=== PATIENT | female | born 1950 | race Caucasian/White ===

== ENCOUNTER 2019-10-27 17:44 | Inpatient (IN) | payer OTHER ==
[~2019-10-27] VITALS: Ht 152.4 cm; Wt 95.3 kg
--- NOTE | 2019-10-27 17:46 | NUR ---
ACS POLICY IN PLACE
[2019-10-27 17:54] VITALS: BP 159/80
[2019-10-27 18:08] LABS: BASO # 0.1 10*3/uL (0.0-0.1); BASO % 0.3 % (0.0-1.0); EOS % 0.1 % (1.0-4.0); HEMATOCRIT 30.7 % (37.0-47.0); LYMPH # 1.1 10*3/uL (1.3-4.4); MEAN CELL VOLUME 77.3 fl (81.0-99.0); MEAN CORPUSCULAR HGB 21.9 pg (27.0-31.0); MEAN CORPUSCULAR HGB CONC 28.3 g/dl (33.0-37.0); MEAN PLATELET VOLUME 10.2 fl (9.6-12.3); MONO # 1.1 10*3/uL (0.1-1.0); MONO % 4.9 % (3.0-9.0); NEUT # 19.2 10*3/uL (2.3-7.9); NEUT % 89.1 % (47.0-73.0); PLATELET COUNT AUTOMATED 401 10*3/uL (130-400); RED BLOOD COUNT 3.97 10*6/uL (4.10-5.10); RED CELL DISTRI WIDTH 16.2 % (0-14.5); WHITE BLOOD COUNT 21.6 10*3/uL (4.8-10.8)
[2019-10-27 18:20] LABS: ACT PARTIAL THROMBO TIME 26.2 SECONDS (20.0-32.1); INTERNATIONAL NORM RATIO 1.1 (2.0-3.5)
[2019-10-27 18:26] LABS: ALBUMIN 3.7 gm/dl (3.1-4.5); ALKALINE PHOSPHATASE 183 U/L (45-117); BUN 16 mg/dl (7-24); CHLORIDE 106 mmol/L (98-107); CREATININE 0.99 mg/dL (0.55-1.02); POTASSIUM 4.1 mmol/L (3.5-5.1); SGOT/AST 28 IU/L (3-35); SGPT/ALT 26 U/L (12-78); SODIUM 138 mmol/L (136-145); TOTAL PROTEIN 7.5 gm/dL (6.4-8.2)
[2019-10-27 18:30] VITALS: BP 121/77
[2019-10-27 18:34] LABS: TROPONIN I 0.047 ng/ml (<0.045)
--- NOTE | 2019-10-27 19:06 | NUR ---
REPORT FROM KARLA SALGADO. ASSUMED CARE OF PT.
--- NOTE | 2019-10-27 19:56 | NUR ---
PT'S FLUIDS INCREASED TO BOLUS RATE.
[2019-10-27 21:34] VITALS: BP 126/79
--- NOTE | 2019-10-27 21:34 | NUR ---
PT AWARE OF PLAN TO ADMIT. DENIES NEEDS AT THIS TIME. WILL CONTINUE TO MONITOR.
[2019-10-28 00:11] LABS: BILIRUBIN NEGATIVE (NEGATIVE); BLOOD TRACE-INTACT (NEGATIVE); CLARITY CLEAR (CLEAR); COLOR YELLOW (YELLOW); GLUCOSE NEGATIVE (NEGATIVE); KETONE NEGATIVE (NEGATIVE); LEUKO ESTERASE TRACE (NEGATIVE); NITRITE NEGATIVE (NEGATIVE); SPECIFIC GRAVITY 1.015 (1.005-1.030); UROBILINOGEN 0.2 E.U./dl (0.2-1.0)
[2019-10-28 00:14] LABS: BACTERIA TRACE; EPITHELIAL CELLS 31-40
[2019-10-28 00:36] VITALS: BP 126/42
--- NOTE | 2019-10-28 00:38 | NUR ---
SBAR FAXED TO [facility] ON [facility]. CALLED TO CONFIRM RECEIPT
[2019-10-28 01:00] VITALS: BP 155/55
--- NOTE | 2019-10-28 01:00 | NUR ---
A 69, admitted to 5E, under the services of YADIEL Callejas DO with a diagnosis of LEUKOCYTOSIS, ELEVATED TROPONIN. Chief complaint is WEAKNESS. Patient arrived via ambulatory from ER. Monitor applied. Initial assessment completed. Vital signs taken and recorded. YADIEL CALLEJAS DO notified of admission to the unit. Orders received. See assessment for past medical history, medications and allergies. Patient and/or family oriented to unit. visitation policy reviewed. Clothing/patient valuable form completed. [facility] LITTLE
--- NOTE | 2019-10-28 01:00 | NUR ---
PT TRANSPORTED TO AT THIS TIME IN STABLE CONDITION. BEDSIDE REPORT GIVEN TO KARLA TAN. ALL QUESTIONS AND CONCERNS ADDRESSED.
[2019-10-28] MEDS ORDERED: GLUCOPHAGE500 M1 PO (01:11)
[2019-10-28] MEDS ORDERED: ZESTRIL,PRINIVIL5 MG PO (01:13)
[2019-10-28] MEDS ORDERED: XARELTO15 M1 PO (01:15)
[2019-10-28] MEDS ORDERED: Lopressor25 MG PO (01:16)
[2019-10-28] MEDS ORDERED: ASPIRIN ADULT L81 M2 PO (01:16)
[2019-10-28] MEDS ORDERED: ATORVASTATIN CA80 M1 PO (01:16)
--- NOTE | 2019-10-28 01:37 | NUR ---
DR. JIMENEZ NOTIFIED PATIENT'S HOME MED REQ IS UP TO DATE.
--- NOTE | 2019-10-28 02:16 | NUR ---
DR. JIMENEZ NOTIFIED OF CRITICAL LACTIC ACID OF 2.[address] SANCHEZ'S ANSWERING SERVICE NOTIFIED OF CONSULT FOR PATIENT FOR ELEVATED TROPONINS.
[2019-10-28 06:27] LABS: BASO % 0.3 % (0.0-1.0); EOS # 0.1 10*3/uL (0.0-0.4); EOS % 0.9 % (1.0-4.0); HEMATOCRIT 27.5 % (37.0-47.0); LYMPH # 2.5 10*3/uL (1.3-4.4); LYMPH % 18.2 % (27.0-41.0); MEAN CELL VOLUME 78.3 fl (81.0-99.0); MEAN CORPUSCULAR HGB 21.4 pg (27.0-31.0); MEAN CORPUSCULAR HGB CONC 27.3 g/dl (33.0-37.0); MEAN PLATELET VOLUME 10.1 fl (9.6-12.3); MONO # 0.9 10*3/uL (0.1-1.0); MONO % 6.5 % (3.0-9.0); NEUT # 10.1 10*3/uL (2.3-7.9); NEUT % 73.8 % (47.0-73.0); PLATELET COUNT AUTOMATED 358 10*3/uL (130-400); RED BLOOD COUNT 3.51 10*6/uL (4.10-5.10); RED CELL DISTRI WIDTH 16.5 % (0-14.5); WHITE BLOOD COUNT 13.7 10*3/uL (4.8-10.8)
[2019-10-28 08:00] VITALS: BP 118/55
--- NOTE | 2019-10-28 08:10 | NUR ---
IN PT ROOM COMPLETING ASSESSMENT, PT VOICES NO COMPLAINTS AT THIS TIME. PT IS RESTING IN HER BED AND STATES THAT SHE JUST ORDERED BREAKFAST. PT NOTES THAT HER CONGESTION THAT HAS BEEN GOING ON FOR A WEEK FEELS LIKE IT HAS GOT A LITTLE BETTER, AND SHE HAS A DRY NON PRODUCTIVE COUGH. CALL LIGHT IS PLACED NEAR PATIENT, AND WILL CONTINUE TO MONITOR
--- NOTE | 2019-10-28 08:19 | NUR ---
PHYSICAL THERAPY Screen recieved pt admitted from home with sepsis and maxillary sinusitis Please consult PT if pt has a change in functional status below baseline thank you. Lisa Rodriguez PT
--- NOTE | 2019-10-28 09:50 | NUR ---
NOTIFIED DR BONNER OF UPDATED MED LIST THAT HAS NOT BEEN CONTINUED FROM YESTERDAY
--- NOTE | 2019-10-28 10:18 | NUR ---
DR CHUNG IN TO SEE PATIENT
[2019-10-28 12:00] VITALS: BP 136/73
[2019-10-28 16:00] VITALS: BP 122/63
[2019-10-28 20:00] VITALS: BP 131/53
[2019-10-29] VITALS (10 sets, daily range): BP systolic 105–134; BP diastolic 40–60
[2019-10-29 05:51] LABS: HEMATOCRIT 24.5 % (37.0-47.0); MEAN CORPUSCULAR HGB 21.3 pg (27.0-31.0); MEAN CORPUSCULAR HGB CONC 27.3 g/dl (33.0-37.0); MEAN PLATELET VOLUME 10.4 fl (9.6-12.3); PLATELET COUNT AUTOMATED 317 10*3/uL (130-400); RED BLOOD COUNT 3.14 10*6/uL (4.10-5.10); RED CELL DISTRI WIDTH 16.4 % (0-14.5); WHITE BLOOD COUNT 8.8 10*3/uL (4.8-10.8)
[2019-10-29 06:18] LABS: BUN 13 mg/dl (7-24); CHLORIDE 110 mmol/L (98-107); CHOLESTEROL 99 mg/dL (<200); CREATININE 0.76 mg/dL (0.55-1.02); POTASSIUM 4.1 mmol/L (3.5-5.1); SODIUM 140 mmol/L (136-145); TRIGLYCERIDES 149 mg/dl (<150); VLDL CHOLESTEROL 30 mg/dL (6-40)
--- NOTE | 2019-10-29 06:19 | NUR ---
DR. DAUGHERTY NOTIFIED THAT PATIENT HAS A CRITICAL HEMOGLOBIN OF 6.7.
[2019-10-29 06:27] LABS: HDL CHOLESTEROL 36 mg/dl (40-60); LDL CHOLESTEROL 33 mg/dL (9-159)
[2019-10-29 07:03] LABS: MICROCYTOSIS SLIGHT; OVALOCYTES FEW; PLATELET SUFFICIENCY NORMAL (NORMAL); TOTAL CELLS COUNTED 100 #CELLS
[2019-10-29 07:04] LABS: POLYCHROMASIA SLIGHT; SCHISTOCYTES FEW; TOXIC GRANULATION SLIGHT
--- NOTE | 2019-10-29 08:15 | NUR ---
MARIAH INITIATED AT THIS TIME. VSS. CONSENT SIGNED. IV SITE PATENT.
--- NOTE | 2019-10-29 12:36 | NUR ---
Civil Division Deputy Sheriff in to talk to patient. Patient states lives at HOME with ODETTE AND SON. There are NO steps in the home. Physician: [facility] Home health services: NONE Patient's level of ADLs: INDEPENDENT Patient has working utilities: YES DME: [facility] Follow-up physician's appointment after d/c: WILL BE MADE BY RN HOSPITALIST COORDINATOR Does patient want to access PORTAL?: NO Discharge plan ACCOUNTING SYSTEMS ANALYST SPOKE WITH THE PATIENT. PATIENT STATED THAT SHE RESIDES AT HOME WITH HER SON AND DAUGHTER [place]. PATIENT STATED THAT SHE USES A [facility]E PRN. PATIENT USES [facility]. PATIENT STATED HER SON JENNA IS DPOA-HC. PATIENT STATED SHE DOES DRIVE. PATIENT STATED SHE WOULD LIKE TO RETURN HOME UPON DISCHARGE. PATIENT IS UNSURE IF THERE ARE ANY NEEDS UPON DISCHARGE AT THIS TIME. . DAVIN GONZALES
[2019-10-29 12:56] LABS: BASO # 0.1 10*3/uL (0.0-0.1); BASO % 0.6 % (0.0-1.0); EOS # 0.4 10*3/uL (0.0-0.4); EOS % 4.6 % (1.0-4.0); HEMATOCRIT 29.5 % (37.0-47.0); LYMPH # 1.5 10*3/uL (1.3-4.4); LYMPH % 18.2 % (27.0-41.0); MEAN CELL VOLUME 79.7 fl (81.0-99.0); MEAN CORPUSCULAR HGB 22.4 pg (27.0-31.0); MEAN CORPUSCULAR HGB CONC 28.1 g/dl (33.0-37.0); MEAN PLATELET VOLUME 10.2 fl (9.6-12.3); MONO # 0.5 10*3/uL (0.1-1.0); MONO % 6.2 % (3.0-9.0); NEUT # 5.7 10*3/uL (2.3-7.9); PLATELET COUNT AUTOMATED 296 10*3/uL (130-400); RED CELL DISTRI WIDTH 16.4 % (0-14.5); WHITE BLOOD COUNT 8.1 10*3/uL (4.8-10.8)
--- NOTE | 2019-10-29 14:00 | NUR ---
PATIENT HAD A BOWEL MOVEMENT OF BLOODY MUCOUS AT THIS TIME. NOTIFIED .
--- NOTE | 2019-10-29 15:10 | NUR ---
AWARE OF CONSULT. HE WILL SEE HER TOMORROW AND LIKELY DO A SCOPE ON THURSDAY.
--- NOTE | 2019-10-29 20:30 | NUR ---
IN TO ASSESS PATIENT, PATIENT PLEASANT AND COOPERATIVE WITH NO COMPLAINTS. DENIES CP, DENIES SOB. PATIENT VERBALIZED THAT SHE KNOWS SHE NEEDS A STOOL SAMPLE BUT HAS BEEN UNABLE TO PROVIDE ONE. PATIENT DENIES ANY NEEDS AT THIS TIME. CALL LIGHT WITHIN REACH, WILL MONITOR
--- NOTE | 2019-10-29 23:00 | NUR ---
PATIENT SLEEPING, NO DISTRESS NOTED. CALL LIGHT WITHIN REACH, WILL MONITOR
[2019-10-30] VITALS: BP 150/55
--- NOTE | 2019-10-30 03:43 | NUR ---
PATIENT CONTINUES TO SLEEP, NO DISTRESS NOTED. CALL LIGHT WITHIN REACH, WILL MONITOR
--- NOTE | 2019-10-30 05:41 | NUR ---
24 HR chart check completed.
[2019-10-30 06:34] LABS: BASO % 0.6 % (0.0-1.0); EOS # 0.4 10*3/uL (0.0-0.4); HEMATOCRIT 28.2 % (37.0-47.0); LYMPH # 1.8 10*3/uL (1.3-4.4); LYMPH % 24.4 % (27.0-41.0); MEAN CELL VOLUME 80.1 fl (81.0-99.0); MEAN CORPUSCULAR HGB 22.4 pg (27.0-31.0); MEAN PLATELET VOLUME 10.3 fl (9.6-12.3); MONO # 0.6 10*3/uL (0.1-1.0); MONO % 7.7 % (3.0-9.0); NEUT # 4.4 10*3/uL (2.3-7.9); PLATELET COUNT AUTOMATED 292 10*3/uL (130-400); RED BLOOD COUNT 3.52 10*6/uL (4.10-5.10); RED CELL DISTRI WIDTH 16.4 % (0-14.5); WHITE BLOOD COUNT 7.2 10*3/uL (4.8-10.8)
[2019-10-30 08:00] VITALS: BP 128/63
[2019-10-30 12:00] VITALS: BP 120/60
[2019-10-30 16:00] VITALS: BP 141/55
[2019-10-30 20:00] VITALS: BP 143/61
--- NOTE | 2019-10-30 21:59 | NUR ---
PATIENT FINISHED COLO PREP AT THIS TIME. PATIENT HAS NO COMPLAINTS AT THIS TIME. NIGHT TIME MEDICATION TAKEN WITHOUT DIFFICULTY. CALL LIGHT WITHIN REACH, WILL CONTINUE TO MONITOR
[2019-10-31] VITALS: BP 130/60
--- NOTE | 2019-10-31 01:02 | NUR ---
PATIENT SLEEPING IN RECLINER CHAIR. NO DISTRESS NOTED. CALL LIGHT WITHIN REACH, WILL MONITOR
[2019-10-31 06:35] LABS: BASO % 0.4 % (0.0-1.0); EOS # 0.3 10*3/uL (0.0-0.4); EOS % 3.4 % (1.0-4.0); HEMATOCRIT 28.4 % (37.0-47.0); LYMPH # 1.4 10*3/uL (1.3-4.4); LYMPH % 17.8 % (27.0-41.0); MEAN CELL VOLUME 77.2 fl (81.0-99.0); MEAN CORPUSCULAR HGB 22.3 pg (27.0-31.0); MEAN CORPUSCULAR HGB CONC 28.9 g/dl (33.0-37.0); MEAN PLATELET VOLUME 10.5 fl (9.6-12.3); MONO # 0.4 10*3/uL (0.1-1.0); MONO % 5.1 % (3.0-9.0); NEUT # 5.6 10*3/uL (2.3-7.9); NEUT % 73.2 % (47.0-73.0); PLATELET COUNT AUTOMATED 323 10*3/uL (130-400); RED BLOOD COUNT 3.68 10*6/uL (4.10-5.10); RED CELL DISTRI WIDTH 16.8 % (0-14.5); WHITE BLOOD COUNT 7.6 10*3/uL (4.8-10.8)
[2019-10-31 06:44] LABS: BUN 8 mg/dl (7-24); CHLORIDE 109 mmol/L (98-107); CREATININE 0.62 mg/dL (0.55-1.02); POTASSIUM 3.5 mmol/L (3.5-5.1); SODIUM 140 mmol/L (136-145)
--- NOTE | 2019-10-31 07:07 | NUR ---
BLOOD SUGAR TAKEN FROM BMP
[2019-10-31 08:00] VITALS: BP 108/60
--- NOTE | 2019-10-31 11:10 | NUR ---
PATIENT RESTING IN BED. VOICES NO COMPLAINTS. RESPIRATIONS EASY, NON LABORED. WILL CONTINUE TO MONTITOR.
--- NOTE | 2019-10-31 11:59 | NUR ---
PATIENT OFF FLOOR FOR SURGERY.
[2019-10-31 12:06] VITALS: BP 170/84
--- NOTE | 2019-10-31 12:13 | NUR ---
PT DENIES NEEDS AT HOME ON DISCHARGE AT THIS TIME. WILL CONTINUE TO FOLLOW.
[2019-10-31 13:10] VITALS: BP 103/48
[2019-10-31 13:25] VITALS: BP 123/63
[2019-10-31 13:40] VITALS: BP 136/52
--- NOTE | 2019-10-31 14:43 | NUR ---
SPOKE WITH DR. THOMAS REGARDING PATIENT PLAN OF CARE. STATES AFTER HE COMES TO DISCUSS FINDINGS WITH PATIENT. PATIENT CAN BE DISCHARGED. NOTIFIED DR. BONNER.
[2019-10-31] MEDS ORDERED: LEVAQUIN500 M2 PO (15:04)
--- NOTE | 2019-10-31 15:30 | NUR ---
DR. THOMAS INTO SEE PATIENT AND DISCUSS FINDINGS OF EGD/COLO.
--- NOTE | 2019-10-31 17:15 | NUR ---
PATIENT OFF FLOOR VIA WHEELCHAIR WITH BELONGINGS AND PRESCRIPTION. Discharge instructions reviewed with patient/family. Patient receptive and verbalizes understanding. Follow-up care arranged. Written instructions given to patient/family. MANUEL LAWTON
== END 2019-10-31 17:15 | disposition home or self-care (01) | DRG 872 ==
LOC: ED 17:44 → EDHOLD 10-28 00:13 → 5E 10-28 00:13
PROVIDERS: Emergency Medicine; Internal Medicine; Nurse Practitioner Family; Student in an Organized Health Care Education/Training Program; ADMIT Internal Medicine
PROC: 30233N1 Transfusion of Nonautologous Red Blood Cells into Peripheral Vein, Percutaneous Approach (ICD-10-PCS; 2019-10-29)
PROC: 0DBN8ZZ Excision of Sigmoid Colon, Via Natural or Artificial Opening Endoscopic (ICD-10-PCS; principal; 2019-10-31)
PROC: 0DBP8ZX Excision of Rectum, Via Natural or Artificial Opening Endoscopic, Diagnostic (ICD-10-PCS; principal; 2019-10-31)
PROC: 0DB68ZX Excision of Stomach, Via Natural or Artificial Opening Endoscopic, Diagnostic (ICD-10-PCS; principal; 2019-10-31)
DX: A41.9 Sepsis, unspecified organism (principal); I24.8 Other forms of acute ischemic heart disease; E44.1 Mild protein-calorie malnutrition; K92.1 Melena; Z68.41 Body mass index [BMI] 40.0-44.9, adult; I50.30 Unspecified diastolic (congestive) heart failure; I13.0 Hypertensive heart and chronic kidney disease with heart failure and stage 1 through stage 4 chronic kidney disease, or unspecified chronic kidney disease; D62 Acute posthemorrhagic anemia; J01.00 Acute maxillary sinusitis, unspecified; R65.20 Severe sepsis without septic shock; N18.3 Chronic kidney disease, stage 3 (moderate); D47.3 Essential (hemorrhagic) thrombocythemia; R74.8 Abnormal levels of other serum enzymes; I48.0 Paroxysmal atrial fibrillation; E78.5 Hyperlipidemia, unspecified; K62.89 Other specified diseases of anus and rectum; E66.01 Morbid (severe) obesity due to excess calories; E11.65 Type 2 diabetes mellitus with hyperglycemia; E11.22 Type 2 diabetes mellitus with diabetic chronic kidney disease; I25.10 Atherosclerotic heart disease of native coronary artery without angina pectoris; I25.2 Old myocardial infarction; Z98.51 Tubal ligation status; Z82.49 Family history of ischemic heart disease and other diseases of the circulatory system; Z83.3 Family history of diabetes mellitus; Z80.3 Family history of malignant neoplasm of breast; Z84.89 Family history of other specified conditions; Z88.0 Allergy status to penicillin; Z79.82 Long term (current) use of aspirin; Z79.899 Other long term (current) drug therapy; Z79.01 Long term (current) use of anticoagulants

== ENCOUNTER → 2019-12-08 | Outpatient (CLI) | payer OTHER ==
[~2019-12-08] MED LIST: ASPIRIN ADULT L81 M2 PO; ATORVASTATIN CA80 M1 PO; GLUCOPHAGE500 M1 PO; LEVAQUIN500 M2 PO; Lopressor25 MG PO; XARELTO15 M1 PO; ZESTRIL,PRINIVIL5 MG PO
== END | disposition home or self-care (01) ==
LOC: LAB 13:20
PROVIDERS: Surgery
DX: Z01.818 Encounter for other preprocedural examination (principal)

== ENCOUNTER → 2019-12-12 | Outpatient (CLI) | payer OTHER ==
[2019-12-12 08:18] LABS: CREATININE 0.78 mg/dL (0.55-1.02)
== END | disposition home or self-care (01) ==
LOC: LAB 07:42 → CT 08:00
PROVIDERS: Surgery
DX: Z01.818 Encounter for other preprocedural examination (principal); C20 Malignant neoplasm of rectum; D62 Acute posthemorrhagic anemia; N28.1 Cyst of kidney, acquired

== ENCOUNTER → 2019-12-26 | Outpatient (CLI) | payer OTHER | END | disposition home or self-care (01) | LOC: CT 09:17 | DX: C20 Malignant neoplasm of rectum (principal) ==

== ENCOUNTER → 2020-01-13 | Outpatient (CLI) | payer OTHER ==
[~2020-01-13] MED LIST changes: +IRON325 M1 PO
== END | disposition home or self-care (01) ==
LOC: COVID19 01:03
DX: Z20.828 Contact with and (suspected) exposure to other viral communicable diseases (principal)

== ENCOUNTER → 2020-02-17 | Outpatient (CLI) | payer OTHER ==
[2020-02-17 14:05] LABS: BASO % 0.5 % (0.0-1.0); EOS # 0.3 10*3/uL (0.0-0.4); EOS % 3.3 % (1.0-4.0); HEMATOCRIT 39.3 % (37.0-47.0); LYMPH # 1.3 10*3/uL (1.3-4.4); LYMPH % 15.2 % (27.0-41.0); MEAN CELL VOLUME 87.7 fl (81.0-99.0); MEAN CORPUSCULAR HGB 26.1 pg (27.0-31.0); MEAN CORPUSCULAR HGB CONC 29.8 g/dl (33.0-37.0); MEAN PLATELET VOLUME 10.2 fl (9.6-12.3); MONO # 0.4 10*3/uL (0.1-1.0); MONO % 4.7 % (3.0-9.0); NEUT # 6.7 10*3/uL (2.3-7.9); PLATELET COUNT AUTOMATED 296 10*3/uL (130-400); RED BLOOD COUNT 4.48 10*6/uL (4.10-5.10); RED CELL DISTRI WIDTH 19.2 % (0-14.5); WHITE BLOOD COUNT 8.8 10*3/uL (4.8-10.8)
[2020-02-17 14:29] LABS: BUN 8 mg/dl (7-24); CHLORIDE 109 mmol/L (98-107); POTASSIUM 3.7 mmol/L (3.5-5.1); SODIUM 141 mmol/L (136-145)
== END | disposition home or self-care (01) ==
LOC: COVID19 02:42 → LAB 02:42 → COVID19 12:30
PROVIDERS: ATTEND Surgery
DX: Z01.818 Encounter for other preprocedural examination (principal); Z11.59 Encounter for screening for other viral diseases

== ENCOUNTER → 2020-03-12 | Outpatient (CLI) | payer OTHER | END | disposition home or self-care (01) | LOC: COVID19 00:34 | PROVIDERS: ATTEND Surgery | DX: Z01.812 Encounter for preprocedural laboratory examination (principal); Z20.828 Contact with and (suspected) exposure to other viral communicable diseases ==

== ENCOUNTER 2020-03-15 01:29 | Inpatient (IN) | payer OTHER ==
[2020-02-17 12:38] VITALS: BP 153/63
[2020-03-12 14:10] VITALS: BP 136/58
[2020-03-12 14:48] LABS: BASO % 0.3 % (0.0-1.0); EOS # 0.4 10*3/uL (0.0-0.4); HEMATOCRIT 38.8 % (37.0-47.0); LYMPH # 1.3 10*3/uL (1.3-4.4); MEAN CELL VOLUME 88.4 fl (81.0-99.0); MEAN CORPUSCULAR HGB 26.7 pg (27.0-31.0); MEAN CORPUSCULAR HGB CONC 30.2 g/dl (33.0-37.0); MEAN PLATELET VOLUME 10.3 fl (9.6-12.3); MONO # 0.5 10*3/uL (0.1-1.0); MONO % 5.4 % (3.0-9.0); NEUT # 7.3 10*3/uL (2.3-7.9); PLATELET COUNT AUTOMATED 338 10*3/uL (130-400); RED BLOOD COUNT 4.39 10*6/uL (4.10-5.10); RED CELL DISTRI WIDTH 15.5 % (0-14.5); WHITE BLOOD COUNT 9.6 10*3/uL (4.8-10.8)
[2020-03-12 15:27] LABS: CHLORIDE 106 mmol/L (98-107); POTASSIUM 3.5 mmol/L (3.5-5.1); SODIUM 141 mmol/L (136-145)
[2020-03-12 15:37] LABS: BUN 14 mg/dl (7-24); CREATININE 0.81 mg/dL (0.55-1.02)
[~2020-03-15] VITALS: Ht 152.4 cm; Wt 91.6 kg
[2020-03-15] VITALS (9 sets, daily range): BP systolic 118–153; BP diastolic 43–69
[2020-03-16] VITALS (7 sets, daily range): BP systolic 111–145; BP diastolic 43–78
[2020-03-16 06:59] LABS: BASO % 0.1 % (0.0-1.0); LYMPH # 0.8 10*3/uL (1.3-4.4); LYMPH % 6.4 % (27.0-41.0); MEAN CELL VOLUME 90.7 fl (81.0-99.0); MEAN CORPUSCULAR HGB 26.9 pg (27.0-31.0); MEAN CORPUSCULAR HGB CONC 29.7 g/dl (33.0-37.0); MONO # 0.6 10*3/uL (0.1-1.0); MONO % 4.3 % (3.0-9.0); NEUT # 11.4 10*3/uL (2.3-7.9); NEUT % 88.7 % (47.0-73.0); PLATELET COUNT AUTOMATED 269 10*3/uL (130-400); RED BLOOD COUNT 3.53 10*6/uL (4.10-5.10); RED CELL DISTRI WIDTH 15.4 % (0-14.5); WHITE BLOOD COUNT 12.9 10*3/uL (4.8-10.8)
[2020-03-16 07:28] LABS: ALBUMIN 2.4 gm/dl (3.1-4.5); ALKALINE PHOSPHATASE 103 U/L (45-117); BUN 7 mg/dl (7-24); CHLORIDE 111 mmol/L (98-107); CHOLESTEROL 85 mg/dL (<200); CREATININE 0.61 mg/dL (0.55-1.02); FREE T4 1.22 ng/dl (0.76-1.46); HDL CHOLESTEROL 39 mg/dl (40-60); LDL CHOLESTEROL 26 mg/dL (9-159); POTASSIUM 3.6 mmol/L (3.5-5.1); SGOT/AST 15 IU/L (3-35); SGPT/ALT 20 U/L (12-78); SODIUM 141 mmol/L (136-145); TOTAL PROTEIN 5.6 gm/dL (6.4-8.2); TRIGLYCERIDES 99 mg/dl (<150); VLDL CHOLESTEROL 20 mg/dL (6-40)
[2020-03-16 07:33] LABS: THYROID STIM HORMONE (HS) 0.879 uIU/ml (0.358-4.75)
[2020-03-16 07:38] LABS: ACT PARTIAL THROMBO TIME 27.8 SECONDS (20.0-32.1); INTERNATIONAL NORM RATIO 1.1 (2.0-3.5)
[2020-03-16 07:48] LABS: VITAMIN D, 25-HYDROXY 26.1 ng/mL (30-100)
[2020-03-17 06:44] LABS: BASO % 0.4 % (0.0-1.0); EOS # 0.1 10*3/uL (0.0-0.4); EOS % 1.1 % (1.0-4.0); HEMATOCRIT 31.4 % (37.0-47.0); LYMPH # 1.5 10*3/uL (1.3-4.4); LYMPH % 14.7 % (27.0-41.0); MEAN CELL VOLUME 91.3 fl (81.0-99.0); MEAN CORPUSCULAR HGB 26.7 pg (27.0-31.0); MEAN CORPUSCULAR HGB CONC 29.3 g/dl (33.0-37.0); MEAN PLATELET VOLUME 9.8 fl (9.6-12.3); MONO # 0.5 10*3/uL (0.1-1.0); MONO % 5.4 % (3.0-9.0); NEUT # 7.7 10*3/uL (2.3-7.9); NEUT % 77.9 % (47.0-73.0); PLATELET COUNT AUTOMATED 225 10*3/uL (130-400); RED BLOOD COUNT 3.44 10*6/uL (4.10-5.10); RED CELL DISTRI WIDTH 15.5 % (0-14.5); WHITE BLOOD COUNT 9.9 10*3/uL (4.8-10.8)
[2020-03-17 07:20] LABS: BUN 6 mg/dl (7-24); CHLORIDE 114 mmol/L (98-107); CREATININE 0.56 mg/dL (0.55-1.02); POTASSIUM 3.4 mmol/L (3.5-5.1); SODIUM 143 mmol/L (136-145)
[2020-03-17 08:00] VITALS: BP 134/63
[2020-03-17 12:00] VITALS: BP 143/66
[2020-03-17 16:00] VITALS: BP 140/55
[2020-03-18] VITALS: BP 120/63
[2020-03-18 06:12] LABS: BASO # 0.1 10*3/uL (0.0-0.1); BASO % 0.5 % (0.0-1.0); EOS # 0.3 10*3/uL (0.0-0.4); EOS % 3.2 % (1.0-4.0); HEMATOCRIT 32.8 % (37.0-47.0); LYMPH # 1.4 10*3/uL (1.3-4.4); LYMPH % 13.5 % (27.0-41.0); MEAN CELL VOLUME 90.9 fl (81.0-99.0); MEAN CORPUSCULAR HGB 26.9 pg (27.0-31.0); MEAN CORPUSCULAR HGB CONC 29.6 g/dl (33.0-37.0); MEAN PLATELET VOLUME 10.3 fl (9.6-12.3); MONO # 0.6 10*3/uL (0.1-1.0); MONO % 6.1 % (3.0-9.0); NEUT # 7.9 10*3/uL (2.3-7.9); NEUT % 76.1 % (47.0-73.0); PLATELET COUNT AUTOMATED 258 10*3/uL (130-400); RED BLOOD COUNT 3.61 10*6/uL (4.10-5.10); RED CELL DISTRI WIDTH 15.2 % (0-14.5); WHITE BLOOD COUNT 10.3 10*3/uL (4.8-10.8)
[2020-03-18 06:33] LABS: BUN 5 mg/dl (7-24); CHLORIDE 113 mmol/L (98-107); CREATININE 0.62 mg/dL (0.55-1.02); POTASSIUM 3.5 mmol/L (3.5-5.1); SODIUM 143 mmol/L (136-145)
[2020-03-18 08:00] VITALS: BP 151/79
[2020-03-18 16:00] VITALS: BP 141/61
[2020-03-18] MEDS ORDERED: PANTOPRAZOLE SO40 MG PO (19:17)
[2020-03-19] VITALS: BP 92/76
[2020-03-19 06:42] LABS: BASO % 0.2 % (0.0-1.0); EOS # 0.3 10*3/uL (0.0-0.4); EOS % 1.7 % (1.0-4.0); HEMATOCRIT 37.2 % (37.0-47.0); LYMPH # 1.1 10*3/uL (1.3-4.4); LYMPH % 6.7 % (27.0-41.0); MEAN CELL VOLUME 90.7 fl (81.0-99.0); MEAN CORPUSCULAR HGB 26.8 pg (27.0-31.0); MEAN CORPUSCULAR HGB CONC 29.6 g/dl (33.0-37.0); MEAN PLATELET VOLUME 10.2 fl (9.6-12.3); MONO # 0.8 10*3/uL (0.1-1.0); MONO % 4.6 % (3.0-9.0); NEUT # 14.6 10*3/uL (2.3-7.9); NEUT % 86.2 % (47.0-73.0); PLATELET COUNT AUTOMATED 334 10*3/uL (130-400); RED CELL DISTRI WIDTH 15.2 % (0-14.5); WHITE BLOOD COUNT 16.9 10*3/uL (4.8-10.8)
[2020-03-19 06:45] LABS: BUN 4 mg/dl (7-24); CHLORIDE 111 mmol/L (98-107); CREATININE 0.59 mg/dL (0.55-1.02); SODIUM 142 mmol/L (136-145)
[2020-03-19 08:00] VITALS: BP 154/74
[2020-03-19 10:42] VITALS: BP 150/70
[2020-03-19 13:00] VITALS: BP 123/54
[2020-03-19 16:00] VITALS: BP 94/45
[2020-03-19 18:41] LABS: BILIRUBIN 1+ (Negative); BLOOD Trace-Lysed (Negative); CLARITY Cloudy (Clear); COLOR Dark Yellow (Yellow); GLUCOSE Trace (Negative); KETONE Trace (Negative); LEUKO ESTERASE 1+ (Negative); NITRITE Negative (Negative); SPECIFIC GRAVITY 1.025 (1.001-1.030)
[2020-03-19 18:55] LABS: BACTERIA 2+; RBC 0-2 rbc/hpf (0-2); WBC 21-30 wbc/hpf (0-5)
[2020-03-19 20:00] VITALS: BP 95/42
[2020-03-20] VITALS (9 sets, daily range): BP systolic 100–158; BP diastolic 44–74
[2020-03-20 06:33] LABS: MEAN CELL VOLUME 89.7 fl (81.0-99.0); MEAN CORPUSCULAR HGB 27.4 pg (27.0-31.0); MEAN CORPUSCULAR HGB CONC 30.6 g/dl (33.0-37.0); MEAN PLATELET VOLUME 10.4 fl (9.6-12.3); PLATELET COUNT AUTOMATED 319 10*3/uL (130-400); RED CELL DISTRI WIDTH 15.4 % (0-14.5); WHITE BLOOD COUNT 24.8 10*3/uL (4.8-10.8)
[2020-03-20 06:41] LABS: BUN 12 mg/dl (7-24); CHLORIDE 108 mmol/L (98-107); POTASSIUM 3.6 mmol/L (3.5-5.1); SODIUM 137 mmol/L (136-145)
[2020-03-20 07:02] LABS: TOTAL CELLS COUNTED 100 #CELLS
[2020-03-20 07:03] LABS: PLATELET SUFFICIENCY NORMAL (NORMAL)
[2020-03-21] VITALS (7 sets, daily range): BP systolic 85–119; BP diastolic 49–69
[2020-03-21 06:13] LABS: ALBUMIN 1.4 gm/dl (3.1-4.5); CHLORIDE 113 mmol/L (98-107); CREATININE 0.95 mg/dL (0.55-1.02); HEMATOCRIT 29.7 % (37.0-47.0); MEAN CELL VOLUME 90.5 fl (81.0-99.0); MEAN CORPUSCULAR HGB 27.1 pg (27.0-31.0); MEAN PLATELET VOLUME 10.3 fl (9.6-12.3); PLATELET COUNT AUTOMATED 272 10*3/uL (130-400); POTASSIUM 3.9 mmol/L (3.5-5.1); RED BLOOD COUNT 3.28 10*6/uL (4.10-5.10); RED CELL DISTRI WIDTH 15.5 % (0-14.5); SGOT/AST 16 IU/L (3-35); SGPT/ALT 13 U/L (12-78); SODIUM 142 mmol/L (136-145); WHITE BLOOD COUNT 19.8 10*3/uL (4.8-10.8)
[2020-03-21 06:14] LABS: ALKALINE PHOSPHATASE 88 U/L (45-117); BUN 22 mg/dl (7-24); TOTAL PROTEIN 4.8 gm/dL (6.4-8.2)
[2020-03-21 07:09] LABS: BURR CELLS MODERATE; PLATELET SUFFICIENCY NORMAL (NORMAL); POLYCHROMASIA SLIGHT; TOTAL CELLS COUNTED 100 #CELLS; TOXIC GRANULATION SLIGHT
[2020-03-21 07:10] LABS: OVALOCYTES FEW; TARGET CELLS FEW
[2020-03-22] VITALS: BP 106/49
[2020-03-22 04:00] VITALS: BP 114/56
[2020-03-22 06:45] LABS: BASO % 0.1 % (0.0-1.0); EOS # 0.4 10*3/uL (0.0-0.4); EOS % 2.4 % (1.0-4.0); HEMATOCRIT 27.9 % (37.0-47.0); LYMPH # 0.6 10*3/uL (1.3-4.4); LYMPH % 3.3 % (27.0-41.0); MEAN CELL VOLUME 92.7 fl (81.0-99.0); MEAN CORPUSCULAR HGB 26.9 pg (27.0-31.0); MEAN PLATELET VOLUME 10.4 fl (9.6-12.3); MONO # 0.8 10*3/uL (0.1-1.0); MONO % 4.5 % (3.0-9.0); NEUT # 14.9 10*3/uL (2.3-7.9); NEUT % 88.2 % (47.0-73.0); PLATELET COUNT AUTOMATED 293 10*3/uL (130-400); RED BLOOD COUNT 3.01 10*6/uL (4.10-5.10); RED CELL DISTRI WIDTH 15.7 % (0-14.5); WHITE BLOOD COUNT 16.9 10*3/uL (4.8-10.8)
[2020-03-22 06:54] LABS: BUN 27 mg/dl (7-24); CHLORIDE 115 mmol/L (98-107); CREATININE 0.74 mg/dL (0.55-1.02); POTASSIUM 3.8 mmol/L (3.5-5.1); SODIUM 145 mmol/L (136-145)
[2020-03-22 08:00] VITALS: BP 114/49
[2020-03-22 12:00] VITALS: BP 125/53
[2020-03-22 15:43] LABS: ACT PARTIAL THROMBO TIME 40.5 SECONDS (20.0-32.1); INTERNATIONAL NORM RATIO 1.2 (2.0-3.5)
[2020-03-22 16:00] VITALS: BP 125/53
[2020-03-22 20:00] VITALS: BP 128/49
[2020-03-23] VITALS: BP 135/59
[2020-03-23 04:00] VITALS: BP 103/53
[2020-03-23 05:44] LABS: CHLORIDE 117 mmol/L (98-107); CREATININE 0.49 mg/dL (0.55-1.02); POTASSIUM 3.6 mmol/L (3.5-5.1); SODIUM 144 mmol/L (136-145)
[2020-03-23 05:48] LABS: BUN 17 mg/dl (7-24)
[2020-03-23 05:49] LABS: BASO % 0.3 % (0.0-1.0); EOS # 0.7 10*3/uL (0.0-0.4); EOS % 4.9 % (1.0-4.0); HEMATOCRIT 28.7 % (37.0-47.0); LYMPH # 0.8 10*3/uL (1.3-4.4); LYMPH % 5.7 % (27.0-41.0); MEAN CELL VOLUME 94.1 fl (81.0-99.0); MEAN CORPUSCULAR HGB 27.2 pg (27.0-31.0); MEAN CORPUSCULAR HGB CONC 28.9 g/dl (33.0-37.0); MEAN PLATELET VOLUME 10.3 fl (9.6-12.3); MONO # 0.8 10*3/uL (0.1-1.0); MONO % 5.6 % (3.0-9.0); NEUT # 11.6 10*3/uL (2.3-7.9); NEUT % 81.7 % (47.0-73.0); PLATELET COUNT AUTOMATED 282 10*3/uL (130-400); RED BLOOD COUNT 3.05 10*6/uL (4.10-5.10); RED CELL DISTRI WIDTH 16.3 % (0-14.5); WHITE BLOOD COUNT 14.1 10*3/uL (4.8-10.8)
[2020-03-23 08:00] VITALS: BP 114/61
[2020-03-23 12:00] VITALS: BP 107/53
[2020-03-23 16:00] VITALS: BP 155/69
[2020-03-23 20:00] VITALS: BP 164/76
[2020-03-24] VITALS: BP 143/74
[2020-03-24 06:21] LABS: BASO # 0.1 10*3/uL (0.0-0.1); BASO % 0.4 % (0.0-1.0); EOS % 6.9 % (1.0-4.0); HEMATOCRIT 29.3 % (37.0-47.0); LYMPH # 1.2 10*3/uL (1.3-4.4); LYMPH % 8.6 % (27.0-41.0); MEAN CELL VOLUME 92.4 fl (81.0-99.0); MEAN CORPUSCULAR HGB 27.1 pg (27.0-31.0); MEAN CORPUSCULAR HGB CONC 29.4 g/dl (33.0-37.0); MEAN PLATELET VOLUME 10.4 fl (9.6-12.3); MONO # 0.7 10*3/uL (0.1-1.0); MONO % 5.2 % (3.0-9.0); NEUT # 10.6 10*3/uL (2.3-7.9); NEUT % 77.2 % (47.0-73.0); PLATELET COUNT AUTOMATED 295 10*3/uL (130-400); RED BLOOD COUNT 3.17 10*6/uL (4.10-5.10); WHITE BLOOD COUNT 13.7 10*3/uL (4.8-10.8)
[2020-03-24 06:25] LABS: BUN 9 mg/dl (7-24); CHLORIDE 116 mmol/L (98-107); POTASSIUM 3.3 mmol/L (3.5-5.1); SODIUM 145 mmol/L (136-145)
[2020-03-24 06:27] LABS: CREATININE 0.47 mg/dL (0.55-1.02)
[2020-03-24 08:00] VITALS: BP 139/66
[2020-03-24 12:00] VITALS: BP 133/69
[2020-03-24 16:00] VITALS: BP 152/83
[2020-03-24 20:00] VITALS: BP 123/66
[2020-03-25] VITALS: BP 154/68
[2020-03-25 05:59] LABS: BUN 5 mg/dl (7-24); CHLORIDE 115 mmol/L (98-107); CREATININE 0.37 mg/dL (0.55-1.02); POTASSIUM 3.6 mmol/L (3.5-5.1); SODIUM 144 mmol/L (136-145)
[2020-03-25 06:11] LABS: HEMATOCRIT 28.1 % (37.0-47.0); MEAN CELL VOLUME 90.1 fl (81.0-99.0); MEAN CORPUSCULAR HGB 26.9 pg (27.0-31.0); MEAN CORPUSCULAR HGB CONC 29.9 g/dl (33.0-37.0); MEAN PLATELET VOLUME 10.3 fl (9.6-12.3); PLATELET COUNT AUTOMATED 328 10*3/uL (130-400); RED BLOOD COUNT 3.12 10*6/uL (4.10-5.10); RED CELL DISTRI WIDTH 15.8 % (0-14.5); WHITE BLOOD COUNT 14.4 10*3/uL (4.8-10.8)
[2020-03-25 07:28] LABS: ATYPICAL LYMPHS 1 % (0-0); BURR CELLS FEW; OVALOCYTES FEW; PLATELET SUFFICIENCY NORMAL (NORMAL); POLYCHROMASIA SLIGHT; SCHISTOCYTES FEW; TOTAL CELLS COUNTED 100 #CELLS
[2020-03-25 08:00] VITALS: BP 136/63
[2020-03-25 16:00] VITALS: BP 147/67
[2020-03-25 20:00] VITALS: BP 139/57
[2020-03-26] VITALS: BP 121/55
[2020-03-26 08:00] VITALS: BP 140/62
[2020-03-26 08:35] LABS: HEMATOCRIT 31.8 % (37.0-47.0); MEAN CELL VOLUME 91.1 fl (81.0-99.0); MEAN CORPUSCULAR HGB 27.8 pg (27.0-31.0); MEAN CORPUSCULAR HGB CONC 30.5 g/dl (33.0-37.0); MEAN PLATELET VOLUME 9.5 fl (9.6-12.3); PLATELET COUNT AUTOMATED 365 10*3/uL (130-400); RED BLOOD COUNT 3.49 10*6/uL (4.10-5.10); RED CELL DISTRI WIDTH 15.9 % (0-14.5); WHITE BLOOD COUNT 14.6 10*3/uL (4.8-10.8)
[2020-03-26 09:10] LABS: PLATELET SUFFICIENCY NORMAL (NORMAL); POLYCHROMASIA SLIGHT; TOTAL CELLS COUNTED 100 #CELLS
[2020-03-26 09:11] LABS: BURR CELLS FEW; OVALOCYTES FEW; SCHISTOCYTES FEW
[2020-03-26 12:00] VITALS: BP 146/69
[2020-03-26 15:06] LABS: ANAEROBE RESULT 1 Bacteroides species (.)
[2020-03-26 16:00] VITALS: BP 152/68
[2020-03-26 20:00] VITALS: BP 152/75
[2020-03-27] VITALS: BP 128/66
[2020-03-27 05:56] LABS: BUN 3 mg/dl (7-24); CHLORIDE 113 mmol/L (98-107); CREATININE 0.45 mg/dL (0.55-1.02); POTASSIUM 3.3 mmol/L (3.5-5.1); SODIUM 143 mmol/L (136-145)
[2020-03-27 06:00] LABS: HEMATOCRIT 31.6 % (37.0-47.0); MEAN CELL VOLUME 91.1 fl (81.0-99.0); MEAN CORPUSCULAR HGB 27.1 pg (27.0-31.0); MEAN CORPUSCULAR HGB CONC 29.7 g/dl (33.0-37.0); MEAN PLATELET VOLUME 10.3 fl (9.6-12.3); PLATELET COUNT AUTOMATED 457 10*3/uL (130-400); RED BLOOD COUNT 3.47 10*6/uL (4.10-5.10); RED CELL DISTRI WIDTH 15.9 % (0-14.5); WHITE BLOOD COUNT 15.7 10*3/uL (4.8-10.8)
[2020-03-27 07:39] LABS: BASOPHILS 1 % (0-1); PLATELET SUFFICIENCY HIGH (NORMAL); POLYCHROMASIA SLIGHT; TOTAL CELLS COUNTED 100 #CELLS
[2020-03-27 08:00] VITALS: BP 120/58
[2020-03-27 16:00] VITALS: BP 141/71
[2020-03-27 20:00] VITALS: BP 105/42
[2020-03-28] VITALS: BP 129/71
[2020-03-28 06:08] LABS: BASO # 0.1 10*3/uL (0.0-0.1); BASO % 0.6 % (0.0-1.0); EOS # 1.2 10*3/uL (0.0-0.4); EOS % 9.8 % (1.0-4.0); HEMATOCRIT 29.2 % (37.0-47.0); LYMPH # 1.3 10*3/uL (1.3-4.4); LYMPH % 10.5 % (27.0-41.0); MEAN CELL VOLUME 90.4 fl (81.0-99.0); MEAN CORPUSCULAR HGB 26.6 pg (27.0-31.0); MEAN CORPUSCULAR HGB CONC 29.5 g/dl (33.0-37.0); MEAN PLATELET VOLUME 10.1 fl (9.6-12.3); MONO # 0.6 10*3/uL (0.1-1.0); MONO % 4.7 % (3.0-9.0); NEUT # 8.7 10*3/uL (2.3-7.9); NEUT % 72.2 % (47.0-73.0); PLATELET COUNT AUTOMATED 368 10*3/uL (130-400); RED BLOOD COUNT 3.23 10*6/uL (4.10-5.10); RED CELL DISTRI WIDTH 15.9 % (0-14.5)
[2020-03-28 06:15] LABS: BUN 4 mg/dl (7-24); CHLORIDE 114 mmol/L (98-107); CREATININE 0.48 mg/dL (0.55-1.02); POTASSIUM 3.7 mmol/L (3.5-5.1); SODIUM 144 mmol/L (136-145)
[2020-03-28 08:00] VITALS: BP 131/57
[2020-03-28 12:00] VITALS: BP 137/68
[2020-03-28 16:00] VITALS: BP 138/64
[2020-03-29] VITALS: BP 124/49
[2020-03-29 08:00] VITALS: BP 137/61
[2020-03-29] MEDS ORDERED: ERTAPENEM1 GM IV (11:21)
[2020-03-29] MEDS ORDERED: METOPROLOL TART50 M1 PO (11:24)
[2020-03-29] MEDS ORDERED: XARE20MG PO (11:24)
[2020-03-29 12:00] VITALS: BP 145/62
== END 2020-03-29 16:31 | disposition other institution (70) | DRG 329 ==
LOC: SDC 01:29 → 5E 14:18 → 4E 14:18 → ICCU 03-20 15:26 → 4E 03-21 19:50 → ICCU 03-21 20:07 → 5E 03-27 18:03
PROVIDERS: Family Medicine; Hospitalist; Internal Medicine; Registered Nurse; Student in an Organized Health Care Education/Training Program; Surgery; ADMIT Internal Medicine; ATTEND Internal Medicine
PROC: 0DBP4ZZ Excision of Rectum, Percutaneous Endoscopic Approach (ICD-10-PCS; principal; 2020-03-15)
PROC: 0DBB0ZZ Excision of Ileum, Open Approach (ICD-10-PCS; 2020-03-20)
PROC: 3E1M38Z Irrigation of Peritoneal Cavity using Irrigating Substance, Percutaneous Approach (ICD-10-PCS; 2020-03-20)
PROC: 02H633Z Insertion of Infusion Device into Right Atrium, Percutaneous Approach (ICD-10-PCS; 2020-03-20)
PROC: B548ZZA Ultrasonography of Superior Vena Cava, Guidance (ICD-10-PCS; 2020-03-20)
PROC: 02HV33Z Insertion of Infusion Device into Superior Vena Cava, Percutaneous Approach (ICD-10-PCS; 2020-03-28)
DX: C20 Malignant neoplasm of rectum (principal); E43 Unspecified severe protein-calorie malnutrition; T81.30XA Disruption of wound, unspecified, initial encounter; N39.0 Urinary tract infection, site not specified; E87.2 Acidosis; D62 Acute posthemorrhagic anemia; I25.10 Atherosclerotic heart disease of native coronary artery without angina pectoris; I48.0 Paroxysmal atrial fibrillation; I10 Essential (primary) hypertension; E78.2 Mixed hyperlipidemia; D72.829 Elevated white blood cell count, unspecified; E83.39 Other disorders of phosphorus metabolism; E11.65 Type 2 diabetes mellitus with hyperglycemia; Z20.828 Contact with and (suspected) exposure to other viral communicable diseases; Z68.38 Body mass index [BMI] 38.0-38.9, adult; Z79.899 Other long term (current) drug therapy; Z90.49 Acquired absence of other specified parts of digestive tract; I25.2 Old myocardial infarction; Z98.51 Tubal ligation status; Z82.49 Family history of ischemic heart disease and other diseases of the circulatory system; Z83.3 Family history of diabetes mellitus; Z88.0 Allergy status to penicillin; Y83.8 Other surgical procedures as the cause of abnormal reaction of the patient, or of later complication, without mention of misadventure at the time of the procedure; Y92.89 Other specified places as the place of occurrence of the external cause

== ENCOUNTER 2020-03-30 18:16 | Inpatient (IN) | payer OTHER ==
[~2020-03-30] VITALS: Ht 152.4 cm; Wt 89.5 kg
[~2020-03-30 18:16] MED LIST changes: +ERTAPENEM1 GM IV; +METOPROLOL TART50 M1 PO; +PANTOPRAZOLE SO40 MG PO; +XARE20MG PO
[2020-03-30 18:28] VITALS: BP 139/63
[2020-03-30 19:06] LABS: ALBUMIN 2.1 gm/dl (3.1-4.5); ALKALINE PHOSPHATASE 113 U/L (45-117); BUN 4 mg/dl (7-24); CHLORIDE 103 mmol/L (98-107); CREATININE 0.42 mg/dL (0.55-1.02); POTASSIUM 3.6 mmol/L (3.5-5.1); SGOT/AST 25 IU/L (3-35); SGPT/ALT 17 U/L (12-78); SODIUM 140 mmol/L (136-145); TOTAL PROTEIN 5.6 gm/dL (6.4-8.2)
[2020-03-30 20:16] LABS: BASO # 0.1 10*3/uL (0.0-0.1); BASO % 0.5 % (0.0-1.0); EOS # 0.9 10*3/uL (0.0-0.4); EOS % 5.9 % (1.0-4.0); HEMATOCRIT 35.3 % (37.0-47.0); LYMPH # 1.3 10*3/uL (1.3-4.4); LYMPH % 8.7 % (27.0-41.0); MEAN CELL VOLUME 88.7 fl (81.0-99.0); MEAN CORPUSCULAR HGB 26.6 pg (27.0-31.0); MEAN PLATELET VOLUME 10.8 fl (9.6-12.3); MONO # 0.6 10*3/uL (0.1-1.0); MONO % 4.4 % (3.0-9.0); NEUT # 11.7 10*3/uL (2.3-7.9); NEUT % 79.8 % (47.0-73.0); PLATELET COUNT AUTOMATED 481 10*3/uL (130-400); RED BLOOD COUNT 3.98 10*6/uL (4.10-5.10); RED CELL DISTRI WIDTH 15.8 % (0-14.5); WHITE BLOOD COUNT 14.7 10*3/uL (4.8-10.8)
[2020-03-30 21:27] VITALS: BP 132/68
[2020-03-30 21:30] LABS: BILIRUBIN Negative (Negative); BLOOD Negative (Negative); CLARITY Clear (Clear); COLOR Yellow (Yellow); GLUCOSE Negative (Negative); KETONE 1+ (Negative); LEUKO ESTERASE Negative (Negative); NITRITE Negative (Negative); PH 6.5 (4.5-8.0); SPECIFIC GRAVITY 1.015 (1.001-1.030); UROBILINOGEN 0.2 E.U./dl (0.0-1.0)
[2020-03-30 21:56] LABS: BACTERIA 1+; EPITHELIAL CELLS 21-30; RBC 0-2 rbc/hpf (0-2)
[2020-03-31] VITALS (8 sets, daily range): BP systolic 109–138; BP diastolic 48–88
[2020-03-31 05:29] LABS: ACT PARTIAL THROMBO TIME 25.8 SECONDS (20.0-32.1)
[2020-03-31 05:36] LABS: ALBUMIN 1.9 gm/dl (3.1-4.5); ALKALINE PHOSPHATASE 104 U/L (45-117); BUN 5 mg/dl (7-24); CHLORIDE 105 mmol/L (98-107); CREATININE 0.38 mg/dL (0.55-1.02); POTASSIUM 3.7 mmol/L (3.5-5.1); SGOT/AST 22 IU/L (3-35); SGPT/ALT 13 U/L (12-78); SODIUM 141 mmol/L (136-145); TOTAL PROTEIN 5.2 gm/dL (6.4-8.2)
[2020-03-31 05:57] LABS: BASO # 0.1 10*3/uL (0.0-0.1); BASO % 0.5 % (0.0-1.0); EOS # 0.8 10*3/uL (0.0-0.4); EOS % 7.4 % (1.0-4.0); HEMATOCRIT 30.7 % (37.0-47.0); LYMPH # 1.5 10*3/uL (1.3-4.4); LYMPH % 13.5 % (27.0-41.0); MEAN CELL VOLUME 89.5 fl (81.0-99.0); MEAN CORPUSCULAR HGB 27.1 pg (27.0-31.0); MEAN CORPUSCULAR HGB CONC 30.3 g/dl (33.0-37.0); MEAN PLATELET VOLUME 10.3 fl (9.6-12.3); MONO # 0.6 10*3/uL (0.1-1.0); MONO % 5.6 % (3.0-9.0); NEUT # 8.1 10*3/uL (2.3-7.9); NEUT % 72.3 % (47.0-73.0); PLATELET COUNT AUTOMATED 393 10*3/uL (130-400); RED BLOOD COUNT 3.43 10*6/uL (4.10-5.10); RED CELL DISTRI WIDTH 16.1 % (0-14.5); WHITE BLOOD COUNT 11.2 10*3/uL (4.8-10.8)
[2020-04-01] VITALS: BP 121/52
[2020-04-01 08:00] VITALS: BP 127/62
[2020-04-01 12:00] VITALS: BP 120/63
[2020-04-01 16:00] VITALS: BP 98/54
[2020-04-01 20:00] VITALS: BP 102/48
[2020-04-02] VITALS: BP 104/44
[2020-04-02 06:09] LABS: HEMATOCRIT 30.8 % (37.0-47.0); MEAN CELL VOLUME 90.1 fl (81.0-99.0); MEAN CORPUSCULAR HGB 26.6 pg (27.0-31.0); MEAN CORPUSCULAR HGB CONC 29.5 g/dl (33.0-37.0); MEAN PLATELET VOLUME 10.3 fl (9.6-12.3); PLATELET COUNT AUTOMATED 364 10*3/uL (130-400); RED BLOOD COUNT 3.42 10*6/uL (4.10-5.10); RED CELL DISTRI WIDTH 15.9 % (0-14.5); WHITE BLOOD COUNT 13.9 10*3/uL (4.8-10.8)
[2020-04-02 06:11] LABS: BUN 7 mg/dl (7-24); CHLORIDE 105 mmol/L (98-107); CREATININE 0.49 mg/dL (0.55-1.02); POTASSIUM 4.1 mmol/L (3.5-5.1); SODIUM 140 mmol/L (136-145)
[2020-04-02 07:49] LABS: ATYPICAL LYMPHS 1 % (0-0); BASOPHILS 1 % (0-1); TOTAL CELLS COUNTED 100 #CELLS
[2020-04-02 07:52] LABS: OVALOCYTES FEW; PLATELET SUFFICIENCY NORMAL (NORMAL)
[2020-04-02 08:00] VITALS: BP 112/50
[2020-04-02 12:00] VITALS: BP 110/64
[2020-04-02 16:00] VITALS: BP 107/48
[2020-04-02 20:00] VITALS: BP 114/46
[2020-04-03] VITALS: BP 105/42
[2020-04-03 08:00] VITALS: BP 130/45
[2020-04-03 12:00] VITALS: BP 115/45
[2020-04-03 16:00] VITALS: BP 114/44
[2020-04-03 20:00] VITALS: BP 110/47
[2020-04-04] VITALS: BP 115/42
[2020-04-04 06:16] LABS: MEAN CELL VOLUME 90.9 fl (81.0-99.0); MEAN CORPUSCULAR HGB CONC 29.7 g/dl (33.0-37.0); MEAN PLATELET VOLUME 10.5 fl (9.6-12.3); PLATELET COUNT AUTOMATED 371 10*3/uL (130-400); RED BLOOD COUNT 3.41 10*6/uL (4.10-5.10); RED CELL DISTRI WIDTH 15.7 % (0-14.5); WHITE BLOOD COUNT 11.9 10*3/uL (4.8-10.8)
[2020-04-04 06:31] LABS: BUN 7 mg/dl (7-24); CHLORIDE 105 mmol/L (98-107); CREATININE 0.56 mg/dL (0.55-1.02); POTASSIUM 4.1 mmol/L (3.5-5.1); SODIUM 142 mmol/L (136-145)
[2020-04-04 07:49] LABS: PLATELET SUFFICIENCY NORMAL (NORMAL); TOTAL CELLS COUNTED 100 #CELLS
[2020-04-04 08:00] VITALS: BP 121/49
[2020-04-04 12:00] VITALS: BP 120/43
[2020-04-04] MEDS ORDERED: ZOFRAN4 MG PO (13:30)
== END 2020-04-04 17:26 | disposition other institution (70) | DRG 862 ==
LOC: ED 18:16 → EDHOLD 20:30 → 5E 20:30
PROVIDERS: Emergency Medicine; Family Medicine; Social Worker Clinical; Student in an Organized Health Care Education/Training Program; ADMIT Internal Medicine; ATTEND Internal Medicine
PROC: 2W03X6Z Change Pressure Dressing on Abdominal Wall (ICD-10-PCS; principal; 2020-03-31)
DX: T81.41XA Infection following a procedure, superficial incisional surgical site, initial encounter (principal); A41.50 Gram-negative sepsis, unspecified; E43 Unspecified severe protein-calorie malnutrition; T81.30XA Disruption of wound, unspecified, initial encounter; K94.02 Colostomy infection; Y83.8 Other surgical procedures as the cause of abnormal reaction of the patient, or of later complication, without mention of misadventure at the time of the procedure; Y82.8 Other medical devices associated with adverse incidents; D64.9 Anemia, unspecified; D47.3 Essential (hemorrhagic) thrombocythemia; I10 Essential (primary) hypertension; I25.10 Atherosclerotic heart disease of native coronary artery without angina pectoris; Z20.828 Contact with and (suspected) exposure to other viral communicable diseases; E11.65 Type 2 diabetes mellitus with hyperglycemia; I48.0 Paroxysmal atrial fibrillation; E78.5 Hyperlipidemia, unspecified; Z88.0 Allergy status to penicillin; Z82.49 Family history of ischemic heart disease and other diseases of the circulatory system; Z98.51 Tubal ligation status; Z83.3 Family history of diabetes mellitus; Z82.5 Family history of asthma and other chronic lower respiratory diseases; Z79.84 Long term (current) use of oral hypoglycemic drugs; Z79.899 Other long term (current) drug therapy; Y92.89 Other specified places as the place of occurrence of the external cause; Z68.38 Body mass index [BMI] 38.0-38.9, adult

== ENCOUNTER 2020-04-30 06:48 | Emergency (ER) | payer OTHER ==
[~2020-04-30] VITALS: Ht 154.9 cm; Wt 80.3 kg
[~2020-04-30 06:48] MED LIST changes: +ZOFRAN4 MG PO
[2020-05-01] MEDS ORDERED: PROTONIX20 MG PO (15:04)
[2020-05-01] MEDS ORDERED: METOPROLOL25 MG PO (15:04)
[2020-05-01] MEDS ORDERED: ZINC GLUCONATE50 MG PO (15:05)
== END 2020-04-30 09:44 | disposition home or self-care (01) ==
LOC: ED 06:48
DX: T81.32XA Disruption of internal operation (surgical) wound, not elsewhere classified, initial encounter (principal); I25.2 Old myocardial infarction; E11.9 Type 2 diabetes mellitus without complications; I10 Essential (primary) hypertension; E78.5 Hyperlipidemia, unspecified; Z98.61 Coronary angioplasty status; Z88.0 Allergy status to penicillin; Z79.899 Other long term (current) drug therapy; Z90.89 Acquired absence of other organs; Z98.51 Tubal ligation status; Z98.890 Other specified postprocedural states; Y83.8 Other surgical procedures as the cause of abnormal reaction of the patient, or of later complication, without mention of misadventure at the time of the procedure; Y92.89 Other specified places as the place of occurrence of the external cause

== ENCOUNTER 2020-05-01 11:46 | Inpatient (IN) | payer OTHER ==
[~2020-05-01] VITALS: Ht 152.4 cm; Wt 86.7 kg
[2020-05-01 12:00] VITALS: BP 118/32
[2020-05-01 12:45] VITALS: BP 118/32
--- NOTE | 2020-05-01 12:45 | NUR ---
Time: 1244 A 70 year old FEMALE admitted to under services of JUANITA WILLIS DO. Pt. arrived via wheel chair from [place]. Chief complaint: INFECTED ABDOMINAL WOUND AND ILEOSTOMY SITE/SURROUNDING SKIN. SHERRY DURÁN
[2020-05-01 13:30] LABS: BASO # 0.1 10*3/uL (0.0-0.1); BASO % 0.4 % (0.0-1.0); EOS # 1.4 10*3/uL (0.0-0.4); EOS % 10.1 % (1.0-4.0); HEMATOCRIT 28.4 % (37.0-47.0); LYMPH # 1.3 10*3/uL (1.3-4.4); LYMPH % 9.2 % (27.0-41.0); MEAN CELL VOLUME 91.6 fl (81.0-99.0); MEAN CORPUSCULAR HGB 27.4 pg (27.0-31.0); MEAN CORPUSCULAR HGB CONC 29.9 g/dl (33.0-37.0); MEAN PLATELET VOLUME 10.1 fl (9.6-12.3); MONO # 0.6 10*3/uL (0.1-1.0); MONO % 4.1 % (3.0-9.0); NEUT # 10.3 10*3/uL (2.3-7.9); NEUT % 75.8 % (47.0-73.0); PLATELET COUNT AUTOMATED 289 10*3/uL (130-400); RED CELL DISTRI WIDTH 16.2 % (0-14.5); WHITE BLOOD COUNT 13.6 10*3/uL (4.8-10.8)
[2020-05-01 13:42] LABS: ACT PARTIAL THROMBO TIME 23.7 SECONDS (20.0-32.1)
[2020-05-01 13:47] LABS: ALBUMIN 2.5 gm/dl (3.1-4.5); CREATININE 1.62 mg/dL (0.55-1.02); POTASSIUM 4.9 mmol/L (3.5-5.1); TOTAL PROTEIN 6.6 gm/dL (6.4-8.2)
[2020-05-01 13:48] LABS: FREE T4 1.12 ng/dl (0.76-1.46)
--- NOTE | 2020-05-01 14:22 | NUR ---
LEFT MESSAGE ON DR. THOMAS'S CELL PHONE RE: CONSULT.
--- NOTE | 2020-05-01 14:25 | NUR ---
DR. SALOMON'S OFFICE STAFF NOTIFIED OF CONSULT.
--- NOTE | 2020-05-01 14:42 | NUR ---
DR. PAIZ IN TO SEE PATIENT RE: PLAN OF CARE.
--- NOTE | 2020-05-01 15:00 | NUR ---
SPOKE WITH DR. THOMAS RE: CONSULT.
[2020-05-01] MEDS ORDERED: METOPROLOL25 MG PO (15:04)
[2020-05-01] MEDS ORDERED: PROTONIX20 MG PO (15:04)
[2020-05-01] MEDS ORDERED: ZINC GLUCONATE50 MG PO (15:05)
[2020-05-01 16:00] VITALS: BP 114/64
--- NOTE | 2020-05-01 16:03 | NUR ---
Discharge instructions reviewed with patient. Patient receptive and verbalizes understanding. Follow-up care arranged. Written instructions given to patient. SHERRY DURÁN
[2020-05-01 18:44] LABS: BILIRUBIN Negative (Negative); BLOOD Trace-Lysed (Negative); CLARITY Cloudy (Clear); COLOR Yellow (Yellow); GLUCOSE Negative (Negative); KETONE Negative (Negative); LEUKO ESTERASE 3+ (Negative); NITRITE Negative (Negative); SPECIFIC GRAVITY 1.015 (1.001-1.030); UROBILINOGEN 0.2 E.U./dl (0.0-1.0)
[2020-05-01 19:03] LABS: BACTERIA TRACE; EPITHELIAL CELLS 0-2; RBC 0-2 rbc/hpf (0-2); WBC 21-30 wbc/hpf (0-5); YEAST 3+
[2020-05-01 20:00] VITALS: BP 114/43
--- NOTE | 2020-05-01 20:45 | NUR ---
24 HR chart check completed.
--- NOTE | 2020-05-01 21:00 | NUR ---
RESTING IN BED. RESPIRATIONS EASY. LUNGS DIMINISHED, CLEAR. PULSE OX 97% 2L. DENIES N/V/D AT PRESENT. CALL LIGHT WITHIN REACH. NO VOICED COMPLAINTS
--- NOTE | 2020-05-01 21:00 | NUR ---
RESTING IN BED WITH NO ACUTE DISTRESS NOTED. RESPIRATIONS EASY. LUNGS DIMINISHED, CLEAR. PULSE OX 97% RA. AND SOFTLY OBESE WITH NORMO BOWEL SOUNDS, RIGHT ABD OSTOMY PATENT AND LEAKING WITH SURROUNDING SKIN RED AND IRRITATED. TEDS/SCDS IN PLACE. IV FLUIDS INFUSING PER ORDER. CALL LIGHT WIHTIN REACH. NO VOICED COMPLAINTS.
[2020-05-02] VITALS (11 sets, daily range): BP systolic 98–114; BP diastolic 46–66
--- NOTE | 2020-05-02 | NUR ---
SLEEPING. NO DISTRESS NOTED. RESPIRATIONS EASY. VSS. CALL LIGHT WITHIN REACH
--- NOTE | 2020-05-02 03:00 | NUR ---
OSTOMY BAG LEAKING, REMOVED. SITE/SURROUNDING TISSUE CLEANED AND PREPPED. NEW OSTOMY BAG PLACED. AQUAPHOR APPLIED TO IRRITATED SKIN
--- NOTE | 2020-05-02 06:00 | NUR ---
RESTED THROUGHOUT NIGHT WITH NO DISTRESS NOTED. RESPIRATIONS EASY. OSTOMY PATENT WITH NO LEAKAGE NOTED. CALL LIGHT WITHIN REACH. NO VOICED COMPLAINTS
[2020-05-02 06:32] LABS: HEMATOCRIT 23.6 % (37.0-47.0); MEAN CELL VOLUME 93.7 fl (81.0-99.0); MEAN CORPUSCULAR HGB CONC 28.8 g/dl (33.0-37.0); MEAN PLATELET VOLUME 10.2 fl (9.6-12.3); PLATELET COUNT AUTOMATED 215 10*3/uL (130-400); RED BLOOD COUNT 2.52 10*6/uL (4.10-5.10); RED CELL DISTRI WIDTH 16.1 % (0-14.5); WHITE BLOOD COUNT 8.1 10*3/uL (4.8-10.8)
[2020-05-02 06:38] LABS: CHLORIDE 118 mmol/L (98-107); CREATININE 1.04 mg/dL (0.55-1.02); POTASSIUM 4.5 mmol/L (3.5-5.1); SODIUM 144 mmol/L (136-145)
--- NOTE | 2020-05-02 06:40 | NUR ---
DR GRIMM CONTACTED REGARDING CRITICAL HGB 6.8
[2020-05-02 06:52] LABS: BUN 28 mg/dl (7-24)
[2020-05-02 07:43] LABS: BURR CELLS FEW; OVALOCYTES FEW; PLATELET SUFFICIENCY NORMAL (NORMAL); TOTAL CELLS COUNTED 100 #CELLS
--- NOTE | 2020-05-02 13:17 | NUR ---
1 UNIT OF PRBC TRANSFUSED PER ORDER, NO REACTIONS NOTED PO TOLERATED WELL
--- NOTE | 2020-05-02 15:30 | NUR ---
PATRICK-S in to talk to patient. Patient states lives at home with son and [id number]. There are 0 steps in the home. Physician: Dr Ng Pharmacy: [facility] Home health services: [facility] Patient's level of ADLs: MODERATE ASSIST Patient has working utilities: yes DME: hospital bed, walker, BSC Follow-up physician's appointment after d/c: will need scheduled Does patient want to access PORTAL?: no Discharge plan Pt resides with her son and [id number] who assist her along with HH through [facility]. Pt is new to dialysis but was informed that she may no longer be needing this. Pt also spoke of the colostomy reversal. DARYL CONWAY
--- NOTE | 2020-05-02 20:00 | NUR ---
24 HR chart check completed.
--- NOTE | 2020-05-02 21:00 | NUR ---
RESTING IN BED WATCHING TV WITH NO ACUTE DISTRESS NOTED. RESPIRATIONS EASY. LUNGS DIMINISHED, CLEAR. PULSE OX 95% RA. ABD SOFT WITH NORMO BOWEL SOUNDS, COLOSTOMY PATENT RIGHT ABD. TEDS/SCDS IN PLACE. IV FLUIDS INFUSING PER ORDER. CALL LIGHT WITHIN REACH. NO VOICED COMPLAINTS
--- NOTE | 2020-05-02 23:00 | NUR ---
OSTOMY LEAKING, SITE CHANGED. SURROUNDING SKIN RED AND IRRITATED, AQUAPHOR APPLIED PER ORDER
[2020-05-03] VITALS: BP 108/43
--- NOTE | 2020-05-03 03:30 | NUR ---
DISCHARGE PICTURES TAKEN
--- NOTE | 2020-05-03 04:40 | NUR ---
PATIENT AND BELONGINGS DISCHARGED IN CARE [facility] PATIENT DECLINES FAMILY TO BE CONTACTED REGARDING TRANSFER D/T HOUR AND TEXTED FAMILY SELF.
--- NOTE | 2020-05-03 04:45 | NUR ---
REPORT CALLED TO KALA ARMSTRONG Kali
== END 2020-05-03 04:52 | disposition short-term general hospital (02) | DRG 871 ==
LOC: 5E 11:46
PROVIDERS: Hospitalist; ADMIT Internal Medicine; ATTEND Internal Medicine
PROC: 30233N1 Transfusion of Nonautologous Red Blood Cells into Peripheral Vein, Percutaneous Approach (ICD-10-PCS; principal; 2020-05-02)
DX: A41.9 Sepsis, unspecified organism (principal); E43 Unspecified severe protein-calorie malnutrition; N18.6 End stage renal disease; K94.13 Enterostomy malfunction; T81.30XA Disruption of wound, unspecified, initial encounter; L03.311 Cellulitis of abdominal wall; L02.211 Cutaneous abscess of abdominal wall; Z68.45 Body mass index [BMI] 70 or greater, adult; I12.0 Hypertensive chronic kidney disease with stage 5 chronic kidney disease or end stage renal disease; I25.10 Atherosclerotic heart disease of native coronary artery without angina pectoris; E78.5 Hyperlipidemia, unspecified; E11.22 Type 2 diabetes mellitus with diabetic chronic kidney disease; I12.9 Hypertensive chronic kidney disease with stage 1 through stage 4 chronic kidney disease, or unspecified chronic kidney disease; D64.9 Anemia, unspecified; I48.0 Paroxysmal atrial fibrillation; I25.2 Old myocardial infarction; Z98.51 Tubal ligation status; Z82.49 Family history of ischemic heart disease and other diseases of the circulatory system; Z83.3 Family history of diabetes mellitus; Z83.6 Family history of other diseases of the respiratory system; Z80.3 Family history of malignant neoplasm of breast; Z88.0 Allergy status to penicillin; Z98.890 Other specified postprocedural states; Z99.2 Dependence on renal dialysis; Z85.038 Personal history of other malignant neoplasm of large intestine; Y83.8 Other surgical procedures as the cause of abnormal reaction of the patient, or of later complication, without mention of misadventure at the time of the procedure; Y82.8 Other medical devices associated with adverse incidents

== ENCOUNTER 2020-05-30 17:53 | Emergency (ER) | payer OTHER ==
[~2020-05-30] VITALS: Ht 152.4 cm; Wt 81.2 kg
[~2020-05-30 17:53] MED LIST changes: +METOPROLOL25 MG PO; +PROTONIX20 MG PO; +ZINC GLUCONATE50 MG PO
[2020-05-30 18:40] LABS: BASO # 0.1 10*3/uL (0.0-0.1); BASO % 0.3 % (0.0-1.0); EOS % 0.2 % (1.0-4.0); LYMPH # 1.3 10*3/uL (1.3-4.4); LYMPH % 7.2 % (27.0-41.0); MEAN CELL VOLUME 90.4 fl (81.0-99.0); MEAN CORPUSCULAR HGB 26.8 pg (27.0-31.0); MEAN CORPUSCULAR HGB CONC 29.7 g/dl (33.0-37.0); MEAN PLATELET VOLUME 9.7 fl (9.6-12.3); MONO # 1.1 10*3/uL (0.1-1.0); MONO % 6.4 % (3.0-9.0); NEUT # 14.9 10*3/uL (2.3-7.9); NEUT % 84.7 % (47.0-73.0); PLATELET COUNT AUTOMATED 420 10*3/uL (130-400); RED BLOOD COUNT 3.65 10*6/uL (4.10-5.10); RED CELL DISTRI WIDTH 15.7 % (0-14.5); WHITE BLOOD COUNT 17.6 10*3/uL (4.8-10.8)
[2020-05-30 18:50] LABS: INTERNATIONAL NORM RATIO 1.2 (2.0-3.5)
[2020-05-30 19:01] LABS: ALBUMIN 1.7 gm/dl (3.1-4.5); ALKALINE PHOSPHATASE 205 U/L (45-117); BUN 21 mg/dl (7-24); CHLORIDE 108 mmol/L (98-107); CREATININE 0.96 mg/dL (0.55-1.02); LIPASE 67 U/L (73-393); SGOT/AST 17 IU/L (3-35); SGPT/ALT 13 U/L (12-78); SODIUM 142 mmol/L (136-145); TOTAL PROTEIN 6.1 gm/dL (6.4-8.2); TROPONIN I 0.026 ng/ml (<0.045)
[2020-05-30 19:06] LABS: POTASSIUM 2.4 mmol/L (3.5-5.1)
[2020-05-30] MEDS ORDERED: XARE20MG PO (21:27)
== END 2020-05-31 02:40 | disposition short-term general hospital (02) ==
LOC: ED 17:53
PROVIDERS: Physician Assistant
DX: T85.898A Other specified complication of other internal prosthetic devices, implants and grafts, initial encounter (principal); Z88.0 Allergy status to penicillin; Z79.899 Other long term (current) drug therapy; Y83.8 Other surgical procedures as the cause of abnormal reaction of the patient, or of later complication, without mention of misadventure at the time of the procedure; Y92.89 Other specified places as the place of occurrence of the external cause